=== PATIENT | female | born 2000 | race Caucasian/White ===

== ENCOUNTER 2024-06-11 11:56 | Emergency (ER) | payer MEDICAID ==
[~2024-06-11] VITALS: Ht 170.1 cm; Wt 115.7 kg
[2024-06-11] MEDS ORDERED: TRAZODONE50 MG PO (12:34)
[2024-06-11] MEDS ORDERED: LAMOTRIGINE25 M1 PO (12:34)
[2024-06-11] MEDS ORDERED: CLINDAMYCIN HCL 300 MG CAPSULE PO ONE (12:50)
[2024-06-11] MEDS ORDERED: Acetaminophen/Hydrocodone 5 MG/325 MG TABLET PO ONE (12:50)
[2024-06-11] MEDS ORDERED: CLEOCIN HCL300 MG PO (12:50)
== END 2024-06-11 13:07 | disposition home or self-care (01) ==
LOC: ED 11:56
DX: K08.89 Other specified disorders of teeth and supporting structures (principal); R22.0 Localized swelling, mass and lump, head; Z88.0 Allergy status to penicillin; Z88.8 Allergy status to other drugs, medicaments and biological substances

== ENCOUNTER 2024-08-22 21:47 | Emergency (ER) | payer MEDICAID ==
[~2024-08-22] VITALS: Ht 175.2 cm; Wt 115.7 kg
[~2024-08-22 21:47] MED LIST: CLEOCIN HCL300 MG PO; LAMOTRIGINE25 M1 PO; TRAZODONE50 MG PO
[2024-08-22] MEDS ORDERED: Tdap Vaccine 0.5 ML SYR (Adult Vaccine) IM ONE (22:30)
[2024-08-22] MEDS ORDERED: Ondansetron Hydrochloride 4 MG TAB SL ONE (23:25)
[2024-08-22] MEDS ORDERED: Acetaminophen/Hydrocodone 5 MG/325 MG TABLET PO ONE (23:25)
[2024-08-23] MEDS ORDERED: HYDROCODONE-AC1 EAC1 PO (00:01)
[2024-08-23] MEDS ORDERED: Bacitracin Zinc 14 GM TUBE T ONE (00:20)
== END 2024-08-23 00:15 | disposition home or self-care (01) ==
LOC: ED 21:47
DX: S91.332A Puncture wound without foreign body, left foot, initial encounter (principal); Z88.0 Allergy status to penicillin; Z88.1 Allergy status to other antibiotic agents; Z79.899 Other long term (current) drug therapy; W22.8XXA Striking against or struck by other objects, initial encounter; Y93.89 Activity, other specified; Y92.89 Other specified places as the place of occurrence of the external cause; Y99.8 Other external cause status

== ENCOUNTER 2024-09-20 22:34 | Emergency (ER) | payer MEDICAID ==
[~2024-09-20] VITALS: Ht 167.6 cm; Wt 90.7 kg
[~2024-09-20 22:34] MED LIST changes: +HYDROCODONE-AC1 EAC1 PO
[2024-09-20] MEDS ORDERED: NAPROXEN250 MG PO (23:40)
== END 2024-09-20 23:48 | disposition home or self-care (01) ==
LOC: ED 22:34
DX: S90.122A Contusion of left lesser toe(s) without damage to nail, initial encounter (principal); S90.32XA Contusion of left foot, initial encounter; Z88.0 Allergy status to penicillin; Z88.1 Allergy status to other antibiotic agents; Z79.899 Other long term (current) drug therapy; W23.0XXA Caught, crushed, jammed, or pinched between moving objects, initial encounter; Y93.89 Activity, other specified; Y92.009 Unspecified place in unspecified non-institutional (private) residence as the place of occurrence of the external cause; Y99.8 Other external cause status

== ENCOUNTER 2024-11-20 20:58 | Emergency (ER) | payer MEDICAID ==
[~2024-11-20] VITALS: Ht 172.7 cm; Wt 117.5 kg
[~2024-11-20 20:58] MED LIST changes: +NAPROXEN250 MG PO
[2024-11-20 21:26] LABS: BILIRUBIN Negative (Negative); BLOOD Negative (Negative); CLARITY Clear (Clear); COLOR Yellow (Yellow); KETONE 1+ (Negative); LEUKO ESTERASE 2+ (Negative); NITRITE Negative (Negative); PH 5.5 (4.5-8.0); SPECIFIC GRAVITY 1.025 (1.001-1.030); UROBILINOGEN 1.0 E.U./dl (0.0-1.0)
[2024-11-20 21:33] LABS: BACTERIA 1+
[2024-11-20] MEDS ORDERED: metroNIDAZOLE 500 MG TAB PO ONE (22:00)
[2024-11-20] MEDS ORDERED: Ciprofloxacin Hydrochloride 500 MG TAB PO ONE (22:00)
[2024-11-20] MEDS ORDERED: CIPRO500 MG PO (22:02)
== END 2024-11-20 22:22 | disposition home or self-care (01) ==
LOC: ED 20:58
PROVIDERS: Internal Medicine
DX: A59.01 Trichomonal vulvovaginitis (principal); N39.0 Urinary tract infection, site not specified; Z88.0 Allergy status to penicillin; Z88.1 Allergy status to other antibiotic agents; Z79.899 Other long term (current) drug therapy